=== PATIENT | female | born 1990 | race Caucasian/White ===

== ENCOUNTER 2018-05-01 11:39 | Emergency (ER) | payer OTHER ==
[2018-05-01 12:40] LABS: Absolute Lymphocytes (CBC) 3.7 K/uL (0.7-4.9); Absolute Monocytes 0.7 K/uL (0.1-1.3); Absolute Neutrophil 6.7 K/uL (1.8-8.0); Basophils % 0.5 % (0-1.3); Eosinophils % 2.6 % (0-4.4); Hematocrit 44.6 % (36.0-45.0); Lymphocytes % 32.3 % (15.3-44.8); MPV 8.6 fL (7.6-11.3); RBC Red Blood Cell Count 5.27 M/uL (3.86-4.86)
[2018-05-01 12:53] LABS: ALT/SGPT 19 U/L (12-78); AST/SGOT 8 U/L (15-37); Albumin 3.8 g/dL (3.4-5.0); Alkaline Phosphatase 74 U/L (45-117); BUN Blood Urea Nitrogen 10 mg/dL (7-18); Bicarbonate 22 mmol/L (21-32); Bilirubin Direct < 0.1 mg/dL (0-0.2); Bilirubin Total 0.3 mg/dL (0.2-1.0); Glucose Level 99 mg/dL (74-106); Lipase 103 U/L (73-393); Potassium 4.2 mmol/L (3.5-5.1); Protein, Total 7.8 g/dL (6.4-8.2); Sodium Level 140 mmol/L (136-145)
[2018-05-01 13:16] LABS: Urine Blood 1+ (NEG); Urine Glucose NEGATIVE (NEG); Urine Protein TRACE (NEG); Urine Specific Gravity 1.025 (1.005-1.030)
--- NOTE | 2018-05-01 14:43 | RAD REPORT ---
EXAM DESCRIPTION: CT - Abdomen Pelvis W Contrast - 05/01/2018 2:29 pm CLINICAL HISTORY: Pelvic pain, abdominal pain, constipation COMPARISON: CT imaging March 2007 TECHNIQUE: Biphasic, helical CT imaging of the abdomen and pelvis was performed following 100 ml non -ionic IV contrast. Oral contrast was given. All CT scans are performed using dose optimization technique as appropriate and may include automated exposure control or mA/KV adjustment according to patient size. FINDINGS: No suspicious findings in the lung bases. The liver, spleen, and pancreas show no suspicious findings. Gallbladder and biliary tree are also wi thout suspicious finding. Symmetric renal function is seen with no hydronephrosis or suspicious renal mass. No pyelonephritis o r acute parenchymal process. No bladder abnormalities. No adrenal abnormalities. No gastric dilatation or wall thickening. No small bowel abnormality. The appendix is normal. From ce cum through splenic flexure no acute colon finding. There is a moderate stool volume in the descendin g colon, sigmoid colon and rectum. No wall thickening or mass. Uterus and ovaries show no suspicious findings. No free air, free fluid or inflammatory stranding. No mass or bulky lymphadenopathy. A very small umbilical hernia is present. No suspicious bony findings. IMPRESSION: Moderate stool volume in the descending, sigmoid and rectum portions of the colon. No wa ll thickening or mass. No acute or PERISHABLE FREIGHT INSPECTOR process. No other significant findings noted.
--- NOTE | 2018-05-01 15:14 | ER ---
Nurse's Notes [facility] Name: Khadijah Munoz Age: 27 yrs Sex: Female : 1990 Arrival Date: 05/01/2018 Time: 11:40 Bed 19 Private MD: Diagnosis: Lower abdominal pain, unspecified Presentation: 05/01 11:46 Presenting complaint: Diarrhea 6 days ago, took Imodium, stool became black with bright hb red 4 days ago, has not had a BM since. Now c/o right sided abdominal pain and nausea. Transition of care: patient was not received from another setting of care. Onset of symptoms was April 26, 2018. Risk Assessment: Do you want to hurt yourself or someone else? Patient reports no desire to harm self or others. Care prior to arrival: None. 11:46 Method Of Arrival: Ambulatory hb 11:46 Acuity: ANY 3 hb 13:52 Initial Sepsis Screen: Does the patient meet any 2 criteria? No. Patient's initial tw2 sepsis screen is negative. Does the patient have a suspected source of infection? No. Patient's initial sepsis screen is negative. 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 - Social history:: Smoking status: Patient uses tobacco products, smokes one pack cigarettes per day. - Ebola Screening: : No symptoms or risks identified at this time. Screenin:51 Abuse screen: Denies threats or abuse. Nutritional screening: No deficits noted. tw2 Tuberculosis screening: No symptoms or risk factors identified. Fall Risk None identified. Assessment: 11:52 General: Appears in no apparent distress. well groomed, Behavior is calm, cooperative, tw2 appropriate for age. Pain: Complains of pain in abdomen. Neuro: Level of Consciousness is awake, alert, obeys commands, Oriented to person, place, time, situation. Cardiovascular: Denies chest pain, shortness of breath, Heart tones S1 S2 Patient's skin is warm and dry. Respiratory: Airway is patent Respiratory effort is even, unlabored, Respiratory pattern is regular, symmetrical, Breath sounds are clear bilaterally. GI: Abdomen is flat, non-distended, Bowel sounds present X 4 quads. Reports bloody stool. : No signs and/or symptoms were reported regarding the genitourinary system. EENT: No signs and/or symptoms were reported regarding the EENT system. Derm: No signs and/or symptoms reported regarding the dermatologic system. Musculoskeletal: Range of motion: intact in all extremities. 13:15 Reassessment: Patient appears in no apparent distress at this time. No changes from tw2 previously documented assessment. Patient and/or family updated on plan of care and expected duration. Pain level reassessed. Patient is alert, oriented x 3, equal unlabored respirations, skin warm/dry/pink. 14:15 Reassessment: Patient appears in no apparent distress at this time. No changes from tw2 previously documented assessment. Patient and/or family updated on plan of care and expected duration. Pain level reassessed. Patient is alert, oriented x 3, equal unlabored respirations, skin warm/dry/pink. 15:24 Reassessment: Patient appears in no apparent distress at this time. No changes from tw2 previously documented assessment. Patient and/or family updated on plan of care and expected duration. Pain level reassessed. Patient is alert, oriented x 3, equal unlabored respirations, skin warm/dry/pink. Vital Signs: 11:48 BP 112 / 76; Pulse 88; Resp 16; Temp 98.1; Pulse Ox 100% on R/A; Pain 4/10; hb 13:14 BP 97 / 57; Pulse 70; Resp 17; Pulse Ox 98% on R/A; tw2 13:15 BP 108 / 60; Pulse 73; Resp 17; Pulse Ox 98% on R/A; tw2 14:15 BP 108 / 94; Pulse 67; Resp 17; Pulse Ox 99% on R/A; tw2 15:25 BP 106 / 61; Pulse 64; Resp 17; Pulse Ox 97% on R/A; tw2 16:16 BP 107 / 68; Pulse 69; Resp 17; Pulse Ox 99% on R/A; tw2 ED Course: 11:40 Patient arrived in ED. as 11:48 Triage completed. hb 11:49 Arm band placed on. hb 11:50 Bed in low position. Call light in reach. monitoring analyst on. Pulse ox on. NIBP on. tw2 Warm blanket given. 11:52 Selwyn Bailey PA is PHCP. cp 11:52 Ruben Mccarty MD is Attending Physician. cp 12:17 Shena Moser, RN is Primary Nurse. tw2 12:21 Inserted saline lock: 22 gauge in left antecubital area, using aseptic technique. Blood mw2 collected. 14:28 CT completed. Patient tolerated procedure well. Patient moved to CT via wheelchair. Patient moved back from CT. 14:29 CT Abd/Pelvis - W/Contrast: give oral contrast In Process Unspecified. EDMS 15:12 Emma Dash MD is Referral Physician. cp 15:21 Awaiting: completion of iv fluids at this time PRIOR to discharge. tw2 16:16 No provider procedures requiring assistance completed. IV discontinued, intact, tw2 bleeding controlled, No redness/swelling at site. Pressure dressing applied. Administered Medications: 15:24 Drug: NS 0.9% 1000 ml Route: IV; Rate: 1 bolus; Site: left antecubital; tw2 16:03 Follow up: IV Status: Order to discontinue infusion; Order to discontinue infusion per tw2 pts request, provider notified.; IV Intake: 500ml Intake: 16:03 IV: 500ml; Total: 500ml. tw2 Outcome: 15:12 Discharge ordered by MD. cp 16:16 Discharged to home ambulatory. tw2 16:16 Condition: stable 16:16 Discharge instructions given to patient, Instructed on discharge instructions, follow up and referral plans. no drinking with medication, no driving heavy equipment, medication usage, Demonstrated understanding of instructions, follow-up care, medications, Prescriptions given X 1. 16:17 Patient left the ED. tw2 Signatures: Dispatcher [employer] EDNJ Nida Montano Amelia as Selwyn Bailey PA PA cp Iman Rock, RN RN Shena Moser, RN RN tw2 Mag Kirk mw2 Corrections: (The following items were deleted from the chart) 11:49 11:49 Social history: Smoking status: Patient/guardian denies using tobacco, hb hb 15:35 15:25 BP 144 / ???; Pulse 64bpm; Resp 17bpm; Pulse Ox 97% RA; tw2 tw2
--- NOTE | 2018-05-01 15:14 | EDPHYS ---
Physician Documentation [facility] Name: Khadijah Munoz Age: 27 yrs Sex: Female : 1990 Arrival Date: 05/01/2018 Time: 11:40 Bed 19 Private MD: ED Physician Ruben Mccarty HPI: 05/01 12:15 This 27 yrs old Female presents to ER via Ambulatory with complaints of cp Bloody Stools. 12:15 The patient presents with abdominal pain right lower quadrant. cp 12:15 Onset: The symptoms/episode began/occurred today. Associated signs and symptoms: cp Pertinent positives: blood in stools, constipation, diarrhea 6 days ago. Patient reports she started having diarrhea 6 days ago, so she started taking OTC Imodium. Patient reports noticing blood in stool 2-3 days ago but has not had a bowel movement since. Patient complaining of right lower abdomen pain. 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 - Social history:: Smoking status: Patient uses tobacco products, smokes one pack cigarettes per day. - Ebola Screening: : No symptoms or risks identified at this time. ROS: 12:22 Constitutional: Negative for body aches, chills, fever, poor PO intake, weight loss. cp 12:22 Eyes: Negative for injury, pain, redness, and discharge. cp 12:22 ENT: Negative for drainage from ear(s), ear pain, sore throat, difficulty swallowing, difficulty handling secretions. 12:22 Cardiovascular: Negative for chest pain. 12:22 Respiratory: Negative for cough, shortness of breath, wheezing. 12:22 Abdomen/GI: Positive for abdominal pain, diarrhea, constipation, black/tarry stool, rectal bleeding, of the right lower quadrant, Negative for vomiting. 12:22 Back: Negative for pain at rest, pain with movement. 12:22 : Negative for urinary symptoms, vaginal bleeding, vaginal discharge. 12:22 Skin: Negative for cellulitis, rash. 12:22 Neuro: Negative for altered mental status, headache, syncope, weakness. 12:22 All other systems are negative. Exam: 12:30 Constitutional: The patient appears in no acute distress, alert, awake, non-toxic, well cp developed, well nourished. 12:30 Head/Face: Normocephalic, atraumatic. cp 12:30 Eyes: Periorbital structures: appear normal, Pupils: equal, round, and reactive to light and accomodation, Extraocular movements: intact throughout, Conjunctiva: normal, no exudate, no injection, Sclera: no appreciated abnormality, Lids and lashes: appear normal, bilaterally. 12:30 ENT: External ear(s): are unremarkable, Ear canal(s): are normal, clear, TM's: dullness, bilaterally, Nose: is normal, Mouth: is normal, Posterior pharynx: is normal, airway is patent, no erythema, no exudate, Voice: is normal. 12:30 Neck: ROM/movement: is normal, is supple, without pain, no range of motions limitations, no nuchal rigidity. 12:30 Chest/axilla: Inspection: normal, Palpation: is normal, no crepitus, no tenderness. 12:30 Cardiovascular: Rate: normal, Rhythm: regular. 12:30 Respiratory: the patient does not display signs of respiratory distress, Respirations: normal, no use of accessory muscles, no retractions, no splinting, no tachypnea, labored breathing, is not present, Breath sounds: are clear throughout, no decreased breath sounds, no stridor, no wheezing. 12:30 Abdomen/GI: Inspection: abdomen appears normal, Bowel sounds: active, all quadrants, Palpation: soft, in all quadrants, moderate abdominal tenderness, in the right lower quadrant, rebound tenderness, is not appreciated, voluntary guarding, is not appreciated, involuntary guarding, is not appreciated. 12:30 Back: pain, is absent, ROM is normal. 12:30 Neuro: Orientation: is normal, Mentation: is normal. 14:55 : Rectal exam: Stool: brown, soft, Guaiac testing: results were negative for occult cp blood. Vital Signs: 11:48 BP 112 / 76; Pulse 88; Resp 16; Temp 98.1; Pulse Ox 100% on R/A; Pain 4/10; hb 13:14 BP 97 / 57; Pulse 70; Resp 17; Pulse Ox 98% on R/A; tw2 13:15 BP 108 / 60; Pulse 73; Resp 17; Pulse Ox 98% on R/A; tw2 14:15 BP 108 / 94; Pulse 67; Resp 17; Pulse Ox 99% on R/A; tw2 15:25 BP 106 / 61; Pulse 64; Resp 17; Pulse Ox 97% on R/A; tw2 16:16 BP 107 / 68; Pulse 69; Resp 17; Pulse Ox 99% on R/A; tw2 MDM: 11:52 Patient medically screened. cp 15:10 Data reviewed: vital signs, nurses notes, lab test result(s), radiologic studies. cp 15:10 Counseling: I had a detailed discussion with the patient and/or guardian regarding: the cp historical points, exam findings, and any diagnostic results supporting the discharge/admit diagnosis, lab results, radiology results, the need for outpatient follow up, a dip tube assembler machine, to return to the emergency department if symptoms worsen or persist or if there are any questions or concerns that arise at home. ED course: VSS. CT abdomen negative for significant findings. Patient reports she has had similar symptoms for past 2-3 years and has been seen and evaluated by DR Andujar who performed a colonoscopy in the past. Patient unsure of results. Will discharge to home for continued monitoring and recommending stop Imodium and f/u with GI. 05/01 12:10 Order name: Urine Dipstick--Ancillary (enter results); Complete Time: 14:15 bd 05/01 12:10 Order name: Urine --Ancillary (enter results); Complete Time: 14:15 bd 05/01 12:11 Order name: Basic Metabolic Panel; Complete Time: 14:15 cp 05/01 12:11 Order name: CBC with Diff; Complete Time: 14:15 cp 05/01 14:15 Interpretation: Normal except: WBC 11.5; RBC 5.27; MCV 84.5. cp 05/01 12:11 Order name: Creatinine for Radiology; Complete Time: 14:15 cp 05/01 12:11 Order name: Hepatic Function; Complete Time: 14:15 cp 05/01 12:05 Order name: Urine Dipstick-Ancillary (obtain specimen); Complete Time: 12:08 cp 05/01 12:05 Order name: Urine Test (obtain specimen); Complete Time: 12:08 cp 05/01 12:11 Order name: Lipase; Complete Time: 14:15 cp 05/01 12:11 Order name: IV Saline Lock; Complete Time: 13:48 cp 05/01 12:11 Order name: Labs collected and sent; Complete Time: 13:48 cp 05/01 12:12 Order name: CT Abd/Pelvis - W/Contrast: give oral contrast; Complete Time: 14:45 cp Administered Medications: 15:24 Drug: NS 0.9% 1000 ml Route: IV; Rate: 1 bolus; Site: left antecubital; tw2 16:03 Follow up: IV Status: Order to discontinue infusion; Order to discontinue infusion per tw2 pts request, provider notified.; IV Intake: 500ml Disposition: 05/01/18 15:12 Discharged to Home. Impression: Lower abdominal pain, unspecified. - Condition is Stable. - Discharge Instructions: Abdominal Pain, Adult, Irritable Bowel Syndrome, Adult. - Prescriptions for Bentyl 20 mg Oral Tablet - take 1 tablet by ORAL route every 6 hours As needed; 30 tablet. - Medication Reconciliation Form, Thank You Letter, Antibiotic Education, Prescription Opioid Use, Work release form form. - Follow up: Emma Dash MD; When: 2 - 3 days; Reason: Recheck today's complaints. - Problem is an ongoing problem. - Symptoms have improved. Signatures: Dispatcher [employer] EDMS Selwyn Bailey PA PA cp Baxter, Heather, RN RN Shena Matute RN RN tw2 Corrections: (The following items were deleted from the chart) 11:49 11:49 Social history: Smoking status: Patient/guardian denies using tobacco, [facility] 16:17 15:12 05/01/2018 15:12 Discharged to Home. Impression: Lower abdominal pain, tw2 unspecified. Condition is Stable. Forms are Medication Reconciliation Form, Thank You Letter, Antibiotic Education, Prescription Opioid Use. Follow up: Emma Dash; When: 2 - 3 days; Reason: Recheck today's complaints. Problem is an ongoing problem. Symptoms have improved. cp 05/02 15:39 05/01 15:55 : Rectal exam: Stool: brown, soft, Guaiac testing: results were negative cp for occult blood, cp
[2018-05-01] MEDS ORDERED: NA CHLORIDE 0.9% 1,000 ML ONE (15:31)
== END 2018-05-01 16:17 | disposition home or self-care (01) ==
LOC: ER 11:39
DX: R10.31 Right lower quadrant pain (principal); F17.210 Nicotine dependence, cigarettes, uncomplicated
CPT/HCPCS: 36415; 74177; 80048; 80076; 81003; 81025; 83690; 85025; 96360; 99285; J7030; Q9967